=== PATIENT | female | born 1995 | race African-American/Black ===

== ENCOUNTER 2017-09-07 18:50 | Emergency (ER) | payer OTHER ==
[2017-09-07 19:00] VITALS: RESP 18
--- NOTE | 2017-09-07 19:58 | ED ---
Female Urogenital HPI - General Chief complaint: Urogenital Stated complaint: poss std Time Seen by Provider: 09/07/17 19:31 Source: patient, RN notes reviewed Mode of arrival: ambulatory Limitations: no limitations - History of Present Illness Initial comments: This is a 22-year-old female who presents to the emergency department with request for STD testing. Patient states that the last time she was sexually active was approximately one month ago with a random partner. She states that her last menstrual period was on August 25. A few days after her menstrual period, she developed abnormal discharge. She denies any odor. She does state that she has a sore on her labia but is unsure if it is related to shaving. She denies any abnormal bleeding. She denies any pelvic pain. Denies fevers or chills. She states that she feels like her lips are tingling. Denies chest pain, shortness of breath, abdominal pain, nausea or vomiting, constipation or diarrhea, dysuria or hematuria, headache or vision changes. Last Menstrual Period: 08/25/17 - Related Data Previous Rx's Medication Instructions Recorded metroNIDAZOLE [Flagyl] 500 mg PO Q12HR #14 tab 09/07/17 Allergies Allergy/AdvReac Type Severity Reaction Status Date / Time No Known Allergies Allergy Verified 09/07/17 19:16 Review of Systems ROS Statement: Those systems with pertinent positive or pertinent negative responses have been documented in the HPI. ROS Other: All systems not noted in ROS Statement are negative. Past Medical History Past Medical History: No Reported History History of Any Multi-Drug Resistant Organisms: None Reported Past Surgical History: No Surgical Hx Reported Past Psychological History: No Psychological Hx Reported Smoking Status: Never smoker Past Alcohol Use History: None Reported Past Drug Use History: Marijuana General Exam - General Exam Comments Initial Comments: General: Awake and alert, well-developed; in no apparent distress. HEENT: Head atraumatic, normocephalic. Pupils are equal, round and reactive to light. Extraocular movements intact. Oropharynx moist without erythema or exudate. Neck: Supple. Normal ROM. Cardiovascular: Regular rate and rhythm. No murmurs, rubs or gallops. Chest symmetrical. Respiratory: Lungs clear to auscultation bilaterally. No wheezes, rales or rhonchi. Normal respiratory effort with no use of accessory muscles. Abdomen: Soft, non-tender, non-distended. No rigidity, rebound or guarding. Normal bowel sounds in all 4 quadrants. Musculoskeletal: Normal ROM, no tenderness bilateral upper and lower extremities. Ambulating normally. Skin: [place], warm and dry without rashes or lesions. Neurological: Alert and oriented x3. CN II-XII grossly intact. Speech is fluent and answers are appropriate. No focal neuro deficits. Psychiatric: Normal mood and affect. No overt signs of depression or anxiety noted. Limitations: no limitations External exam: Present: normal external exam. Absent: erythema, swelling, lesions Speculum exam: Present: vaginal discharge (thin, homogenous white discharge), other (erythematous lesions cervix). Absent: erythema, vaginal bleeding, foreign body By manual exam: Present: normal by manual exam. Absent: cervical motion tenderness, adnexal tenderness, uterine tenderness Course Vital Signs 09/07/17 18:56 Temperature 98.5 F Pulse Rate 89 Respiratory 18 Rate Blood Pressure 123/68 O2 Sat by Pulse 99 Oximetry Medical Decision Making - Medical Decision Making This is a 22-year-old female who presents to the emergency department with request to be evaluated for possible STD. Patient complains of vaginal discharge. On speculum examination, external genitalia is normal. There is a thin, white homogenous vaginal and cervical discharge noted with erythematous lesions on the cervix. Trichomonas was negative. Testing for chlamydia and gonorrhea is pending. Patient will be empirically treated for bacterial vaginosis with Flagyl. Her vital signs are stable and is in no acute distress. She will be discharged home at this time. Patient is in agreement with plan and voices understanding. All questions were answered. - Lab Data Lab Results 09/07/17 09/07/17 09/07/17 Range/Units 19:40 19:40 20:00 Urine Color Yellow Urine Appearance Cloudy H (Clear) Urine pH 7.0 (5.0-8.0) Ur Specific [place] 1.029 (1.001-1.035) Urine Protein Trace H (Negative) Urine Glucose (UA) Negative (Negative) Urine Ketones 2+ H (Negative) Urine Blood Negative (Negative) Urine Nitrite Negative (Negative) Urine Bilirubin Negative (Negative) Urine Urobilinogen 4.0 (<2.0) mg/dL Ur Leukocyte Esterase Negative (Negative) Urine RBC 1 (0-5) /hpf Urine WBC 1 (0-5) /hpf Ur Squamous Epith Cells 7 H (0-4) /hpf Urine Mucus Many H (None) /hpf Urine HCG, Qual Not Detected (Not Detectd) Trichomonas Ag (Rapid) Negative (Negative) Disposition Clinical Impression: Vaginal Discharge Disposition: HOME SELF-CARE Condition: Good Instructions: Sexually Transmitted Diseases (ED), Vaginal Discharge (ED) Additional Instructions: Please take medications as prescribed. Please follow up with primary care provider within 1-2 days. Return to emergency department if symptoms should worsen or any concerns arise. Prescriptions: metroNIDAZOLE [Flagyl] 500 mg PO Q12HR #14 tab Referrals: None,Stated [Primary Care Provider] - 1-2 days Time of Disposition: 21:07
[2017-09-07 20:48] LABS: Appearance,Urine Cloudy (Clear); Bilirubin,Urine Negative (Negative); Blood,Urine Negative (Negative); Color,Urine Yellow; Glucose,Urine (UA) Negative (Negative); Ketones,Urine 2+ (Negative); Leukocyte Esterase,Urine Negative (Negative); Mucus,Urine Many /hpf; Nitrite,Urine Negative (Negative); Protein,Urine Trace (Negative); RBC,Urine 1 /hpf (0-5); Specific Gravity,Urine 1.029 (1.001-1.035); Squamous Epithelial Cell,Urine 7 /hpf (0-4); WBC,Urine 1 /hpf (0-5)
[2017-09-07 21:31] VITALS: BP 113/75; PULSE 58; TEMP 97.8
[2017-09-08 14:56] LABS: C. trachomatis,PCR Negative (Neg,Equiv); Chlamydia trachomatis Source Cervix; N. gonorrhoeae,PCR Negative (Neg,Equiv); Neisseria Source Cervix
== END 2017-09-07 21:32 | disposition home or self-care (01) ==
LOC: EC 18:50
DX: N89.8 Other specified noninflammatory disorders of vagina (principal)
CPT/HCPCS: 81001; 81025; 87491; 87591; 87808; 99283